=== PATIENT | male | born 1945 | race African-American/Black ===

== ENCOUNTER 2017-04-11 09:24 | Outpatient (CLI) | payer BC ==
[2017-04-11 10:08] LABS: ALT (SGPT) 36 U/L (8-55); AST (SGOT) 26 U/L (5-34); Albumin 4.1 g/dL (3.4-4.8); Alkaline Phosphatase 96 U/L (40-150); Anion Gap 14 mmol/L (10-20); BUN (Urea Nitrogen) 24 mg/dL (8.4-25.7); Bilirubin, Total 0.9 mg/dL (0.2-1.2); Calc. Creatinine Clearance 0 mL/min (70-130); Calcium 9.6 mg/dL (7.8-10.44); Carbon Dioxide 26 mmol/L (23-31); Cardiac Risk 3.6 (Less than 4.5); Chloride 107 mmol/L (98-107); Cholesterol 163 mg/dl (< 200 Desired); Estimated GFR-MDRD 60; Globulin 3.1 g/dL (2.4-3.5); Glucose 117 mg/dL (80-115); HDL Cholesterol 45 mg/dL (>60 Neg Risk); LDL Cholesterol, Calculated 101 mg/dL; Potassium 4.6 mmol/L (3.5-5.1); Protein, Total 7.2 g/dL (5.8-8.1); Sodium 142 mmol/L (136-145); Triglycerides 83 mg/dL (Less than 150)
[2017-04-11 11:40] LABS: #Eosinphils 0.1 thou/uL (0.0-0.7); #Lymphocytes 1.5 thou/uL (1.20-3.40); #Monocytes 0.4 thou/uL (0.11-0.59); #Neutrophils 4.1 thou/uL (1.40-6.50); %Basophils 0.8 % (0.0-1.0); %Eosinophils 1.8 % (0.0-10.0); %Lymphocytes 24.3 % (21.0-51.0); %Monocytes 6.4 % (0.0-10.0); %Neutrophils 66.8 % (42.0-75.0); Hemoglobin 12.7 g/dL (14.0-18.0); Mean Corpuscular HGB CONC 33.5 g/dL (32.0-36.0); Mean Corpuscular Hemoglobin 31.8 pg (27.0-31.0); Platelet Count 176 thou/uL (130-400); RBC Distribution Width 13.3 % (11.5-14.5); Red Blood Cell (RBC) Count 4.01 mill/uL (4.70-6.10); White Blood Cell (WBC) Count 6.2 thou/uL (4.8-10.8)
[2017-04-11 13:21] LABS: Hemoglobin A1c 5.3 % (4.0-6.0)
== END 2017-04-11 09:25 | disposition home or self-care (01) ==
LOC: HPCALD 09:24
PROVIDERS: ATTEND Family Medicine
DX: Z12.5 Encounter for screening for malignant neoplasm of prostate (principal); E11.9 Type 2 diabetes mellitus without complications; I10 Essential (primary) hypertension; E78.5 Hyperlipidemia, unspecified
CPT/HCPCS: 36415; 80053; 80061; 83036; 85025; G0103

== ENCOUNTER 2020-01-05 09:52 | Emergency (ER) | payer MEDICARE, BC ==
[2020-01-05 11:20] LABS: #Basophils 0.2 thou/uL (0.0-0.2); #Eosinphils 0.1 thou/uL (0.0-0.7); #Monocytes 0.9 thou/uL (0.11-0.59); #Neutrophils 9.4 thou/uL (1.40-6.50); %Basophils 1.5 % (0.0-1.0); %Lymphocytes 8.4 % (21.0-51.0); %Monocytes 7.4 % (0.0-10.0); %Neutrophils 81.7 % (42.0-75.0); Hemoglobin 10.4 g/dL (14.0-18.0); Mean Corpuscular HGB CONC 30.4 g/dL (32.0-36.0); Mean Corpuscular Hemoglobin 30.4 pg (27.0-31.0); Mean Corpuscular Volume 99.9 fL (78.0-98.0); Mean Platelet Volume 6.9 fL (7.4-10.4); Platelet Count 262 thou/uL (130-400); RBC Distribution Width 18.2 % (11.5-14.5); Red Blood Cell (RBC) Count 3.41 mill/uL (4.70-6.10); White Blood Cell (WBC) Count 11.5 thou/uL (4.8-10.8)
[2020-01-05 11:35] LABS: ALT (SGPT) 10 U/L (8-55); AST (SGOT) 15 U/L (5-34); Albumin 3.4 g/dL (3.4-4.8); Alkaline Phosphatase 68 U/L (40-110); Anion Gap 17 mmol/L (10-20); BUN (Urea Nitrogen) 9 mg/dL (8.4-25.7); Bilirubin, Total 0.7 mg/dL (0.2-1.2); Calc. Creatinine Clearance 0 mL/min (70-130); Calcium 9.2 mg/dL (7.8-10.44); Carbon Dioxide 26 mmol/L (23-31); Chloride 103 mmol/L (98-107); Estimated GFR-MDRD Greater than 90; Globulin 3.9 g/dL (2.4-3.5); Glucose 102 mg/dL (83-110); Potassium 4.3 mmol/L (3.5-5.1); Protein, Total 7.3 g/dL (5.8-8.1); Sodium 142 mmol/L (136-145)
[2020-01-05 12:20] LABS: Base Excess-Venous 2.2 mmol/L (-2.0 to 3.0); Bicarbonate (HCO3v) 29.8 mmol/L (22.0-28.0); CO2 Tension (PvCO2) 60.1 mmHg (40.0-50.0); Calcium, Ionized 1.22 mmol/L (See Comments:); Chloride 101 mmol/L (98-107); Hemoglobin - Calc 11.9 g/dL (14.0-18.0); Potassium 3.8 mmol/L (3.5-5.1); Sodium 142 mmol/L (138-145); T. Carbon Dioxide 31.6 mmol/L (22.0-28.0); vO2 Saturation-calc 55.5 % (60.0-85.0)
--- NOTE | 2020-01-05 14:32 | RAD ---
CHEST 2 VIEWS: DATE: 01/05/2020. COMPARISON: Comparison is made with the 12/30 and 12/[address] [facility]. FINDINGS: A right pleural effusion is present as before, but it has improved slightly. Fluid seems to have res olved in the left base. Overall, the left lung is now clearer than previously. The right lung conta ins multiple areas of opacity as before. The opacity at the periphery of the base of the right upper lobe near the minor fissure seems slightly denser, while other areas seem slightly better. There is mild enlargement of the right hilum as before. The heart size remains normal. A MediPort catheter is noted in fixed position. IMPRESSION: 1. Resolution of left pleural effusion and left lung is now clear. This is an improvement since 12/15. 2. Diffuse parenchymal opacity in the right lung persists, slightly less in some areas and slightly denser in others. The amount of pleural fluid on the right has improved slightly. POS: HOME
== END 2020-01-05 12:51 | disposition home or self-care (01) ==
LOC: BURERS 09:52
DX: J18.9 Pneumonia, unspecified organism (principal); E11.9 Type 2 diabetes mellitus without complications; E78.5 Hyperlipidemia, unspecified; E78.00 Pure hypercholesterolemia, unspecified; I10 Essential (primary) hypertension; Z87.891 Personal history of nicotine dependence; Z79.01 Long term (current) use of anticoagulants; Z79.899 Other long term (current) drug therapy
CPT/HCPCS: 71046; 80053; 82330; 82803; 83605; 85025; 87040; 87804; 94760

== ENCOUNTER 2020-01-14 00:09 | Emergency (ER) | payer BC, MEDICARE ==
[2020-01-14 01:00] LABS: #Basophils 0.4 thou/uL (0.0-0.2); #Monocytes 0.7 thou/uL (0.11-0.59); #Neutrophils 11.3 thou/uL (1.40-6.50); %Basophils 2.9 % (0.0-1.0); %Eosinophils 0.2 % (0.0-10.0); %Lymphocytes 7.4 % (21.0-51.0); %Monocytes 5.3 % (0.0-10.0); %Neutrophils 84.3 % (42.0-75.0); Hemoglobin 9.4 g/dL (14.0-18.0); Mean Corpuscular Hemoglobin 29.5 pg (27.0-31.0); Mean Corpuscular Volume 98.1 fL (78.0-98.0); Mean Platelet Volume 6.5 fL (7.4-10.4); Platelet Count 211 thou/uL (130-400); RBC Distribution Width 17.6 % (11.5-14.5); Red Blood Cell (RBC) Count 3.18 mill/uL (4.70-6.10); White Blood Cell (WBC) Count 13.4 thou/uL (4.8-10.8)
[2020-01-14 01:16] LABS: Base Excess-Venous 2.2 mmol/L (-2.0 to 3.0); Bicarbonate (HCO3v) 28.8 mmol/L (22.0-28.0); CO2 Tension (PvCO2) 53.2 mmHg (40.0-50.0); Chloride 101 mmol/L (98-107); Hemoglobin - Calc 10.7 g/dL (14.0-18.0); Potassium 4.2 mmol/L (3.5-5.1); Sodium 140 mmol/L (138-145); T. Carbon Dioxide 30.4 mmol/L (22.0-28.0); vO2 Saturation-calc 69.9 % (60.0-85.0)
[2020-01-14] MEDS ORDERED: Levofloxacin 500 mg/D5W 100 ml Premix Bag ONE (01:30)
[2020-01-14] MEDS ORDERED: Aspirin Chewable 81 MG TAB ONE (01:30)
[2020-01-14] MEDS ORDERED: Cefepime 1 GM VIAL ONE (01:30)
[2020-01-14 01:39] LABS: CKMB 4.6 ng/mL (0-6.6)
--- NOTE | 2020-01-14 08:48 | RAD ---
PORTABLE CHEST: Date: 01/14/2020 An AP portable film at 0051 hours is compared with the 01/05/2020 study. The right lung seems slightly more opaque today than it was before. The right hilar prominence and ar eas of opacity throughout the lung are substantial. The left lung remains clear and unchanged. The he art size is normal. IMPRESSION: Slight increase in pulmonary opacity in the right lung, though most of the findings were present on t he 01/05/2020 study. No new changes in the left lung. POS: HOME
== END 2020-01-14 02:30 | disposition short-term general hospital (02) ==
LOC: BURERS 00:09
DX: J18.9 Pneumonia, unspecified organism (principal); E11.9 Type 2 diabetes mellitus without complications; E78.5 Hyperlipidemia, unspecified; E78.00 Pure hypercholesterolemia, unspecified; I10 Essential (primary) hypertension; Z87.891 Personal history of nicotine dependence; Z79.899 Other long term (current) drug therapy; Z79.01 Long term (current) use of anticoagulants
CPT/HCPCS: 71045; 82330; 82435; 82553; 82803; 83605; 83880; 84132; 84295; 84484; 85025; 93005; 96365; 96368; 96375; J0692; J1956; J3370

== ENCOUNTER 2020-01-23 10:48 | Emergency (ER) | payer MEDICARE, BC | END 2020-01-23 15:47 | disposition home or self-care (01) | LOC: BURERS 10:48 | DX: R09.02 Hypoxemia (principal); C34.90 Malignant neoplasm of unspecified part of unspecified bronchus or lung; E11.9 Type 2 diabetes mellitus without complications; E78.5 Hyperlipidemia, unspecified; E78.00 Pure hypercholesterolemia, unspecified; I10 Essential (primary) hypertension; Z87.891 Personal history of nicotine dependence; Z79.899 Other long term (current) drug therapy; Z79.01 Long term (current) use of anticoagulants; Z85.01 Personal history of malignant neoplasm of esophagus | CPT/HCPCS: 93005 ==